=== PATIENT | female | born 1960 | race African-American/Black ===

== ENCOUNTER 2017-08-01 13:25 | Observation (INO) ==
--- NOTE | 2017-08-01 13:36 | Emergency Department Note ---
Disposition Clinical Impression: Transient cerebral ischemia Qualifiers: Transient cerebral ischemia type: unspecified Qualified Code(s): G45.9 - Transient cerebral ischemic attack, unspecified Disposition: Admitted As Inpatient Condition: Good Time of Disposition: 15:37 Neuro HPI - General Chief Complaint: ED Neuro Symptoms/Deficit Stated Complaint: stroke like symptoms Time Seen by Provider: 08/01/17 13:28 Source: patient Mode of arrival: ambulatory Limitations: no limitations Nursing Notes Reviewed: Yes Vital Signs Reviewed: Yes - History of Present Illness HPI Narrative: 57-year-old female otherwise healthy presents emergency department for slurred speech. 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 Some friends and coworkers came to evaluate the patient and she was still unable to repeat certain words. Patient presented immediately to the emergency department. She was evaluated immediately on arrival. She was ambulatory here. Symptoms have completely resolved. Patient reports a history of migraines. She denies any other symptoms such as chest pain, shortness of breath, lightheadedness or syncope. She denies any weakness. She does feel like her upper extremities are sore and heavy. Denies history of cardiac ischemic disease or history of TIA/CVA. She reports a significant history of TIA/CVA in her family. She has been stressed recently as her son has recently came up to visit. She denies history of smoking. Onset of Symptoms Date: 08/01/17 Onset of Symptoms Time: 13:30 Symptom Onset Unknown: No Timing confirmed by: other (FRIEND) Location: speech History of same: No Severity: mild Symptoms Improving: Yes Improves with: time Context: sudden onset On Anticoagulants: No Associated symptoms: Reports: headaches. Denies: confusion, chest pain, cough, diaphoresis, nausea/vomiting, vertigo, seizures, shortness of breath, syncope, weakness - Related Data Home Medications: Home Medications Medication Instructions Recorded Confirmed Allopurinol [Zyloprim 100 MG] 100 mg PO DAILY 08/01/17 08/01/17 Aspirin [Lo-Dose Aspirin EC] 81 mg PO DAILY 08/01/17 08/01/17 Minocycline HCl [Minocin] 100 mg PO DAILY 08/01/17 08/01/17 Tazarotene [Tazorac] 1 appl TP HS 08/01/17 08/01/17 Triamterene/HCTZ 37.5/25mg 1 tab PO DAILY 08/01/17 08/01/17 [Dyazide] Allergies/Adverse Reactions: Allergies Allergy/AdvReac Type Severity Reaction Status Date / Time Penicillins Allergy Anaphylaxis Verified 04/09/17 09:38 codeine AdvReac Rash Verified 04/09/17 09:38 All systems ED: reviewed and negative except as stated. Review of Systems: As Per HPI Constitutional: Denies: fever, chills, weakness Eyes: Denies: vision change ENT ED: Denies: congestion Cardiovascular: Denies: chest pain, syncope Respiratory: Denies: cough, dyspnea Gastrointestinal: Denies: abdominal pain Musculoskeletal: Denies: back pain, arthralgia Neurological: Reports: headache. Denies: abnormal gait, vertigo Psychiatric: Denies: anxiety, depression Past Medical History - Past Medical History Attestation: Yes The following information was validated with the patient. 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 Absent: nystagmus - ENT ENT exam: normal exam, normal oropharynx, mucous membranes moist - Neck Neck exam: Present: normal inspection, full ROM, trachea midline - Chest Chest inspection: Present: normal inspection, symmetric chest wall rise - Respiratory Respiratory exam: Present: normal lung sounds bilaterally. Absent: respiratory distress, wheezes - Cardiovascular Cardiovascular exam: Present: regular rate, normal rhythm, normal heart sounds - Abdominal Exam Abdominal exam: Present: soft, Non-Tender, normal bowel sounds. Absent: tenderness, distention, guarding, rebound, rigidity - Extremities Exam Extremities exam: Present: normal inspection, full ROM, normal capillary refill. Absent: tenderness, pedal edema - Neurological Exam Neurological exam: Present: alert, oriented X3, CN II-XII intact, normal gait - Expanded Neurological Exam Patient oriented to: Present: person, place, time Speech: Present: fluid speech Cranial nerves: EOM function (II, III, IV, ): Normal, facial sensation (V): Normal, facial palsy (VII): Normal, gag reflex (IX): Normal, spinal accessory function (XI): Normal, tongue deviation (XII): Normal Cerebellar function: finger to nose: Normal, heel to welch: Normal Cerebellar function: normal gait Motor strength - LUE: 5/5 Motor strength - RUE: 5/5 Motor strength - LLE: 5/5 Motor strength - RLE: 5/5 Upper motor neuron exam: leila neglect: Absent bilaterally, pronator drift: Absent bilaterally Sensory exam upper extremity: light touch: Normal Sensory exam lower extremity: light touch: Normal Coma Scale Eye Opening: Spontaneous Coma Scale Motor Response: Obeys Commands Coma Scale Verbal Response: Oriented Coma Scale Total: 15 - Psychiatric Psychiatric exam: Present: normal affect, normal mood - Skin Skin exam: Present: warm, dry, intact, normal color. Absent: rash, cyanosis, diaphoresis Course Course Narrative: Patient presents with slurred speech immediately prior to arrival. Her symptoms have spontaneously resolved. Her initial NIH score of 0. Given the resolution of the symptoms patient is not a TPA candidate at this time. Neurologic exam is otherwise unremarkable without any focal neural deficits. Stroke workup initiated. - Reevaluation(s) Reevaluation #1: Review for lab shows a leukocytosis without left shift. Her potassium is slightly low at 3.4. Hemoglobin is 15.5. Labs otherwise unremarkable. She has been evaluated by neurology here in the emergency department and admission was recommended with MRI scan. Patient is pending MRI scan of the brain and will be transferred to the floor. Continues to speak in clear full sentences with family at bedside. No focal neuro deficits. Time: 15:03 Reevaluation #2: Of note CT head was cancelled, pending MRI scan which will be for another 1 hour. Time: 15:37 - Consultations Consultation #1: Patient was seen and evaluated by neurologist Dr. Us here in the emergency department. He is aware that the patient has history of migraines and this could be manifestation of complex migraines but given symptoms would recommend admission including a MRI of the brain here in the emergency department. No other recommendations at this time. Time: 14:22 Consultation #2: Spoke with on-call hospitalist dirk Suh to admit for TIA/CVA. No further orders at this time Time: 15:26 Vital Signs Temperature 98.4 F 08/01/17 13:26 Pulse Rate 76 08/01/17 13:26 Respiratory Rate 20 08/01/17 13:26 Blood Pressure 169/109 08/01/17 13:26 O2 Sat by Pulse Oximetry 99 08/01/17 13:26 Temperature 97.9 F 08/01/17 21:00 Pulse Rate 70 08/01/17 21:00 Respiratory Rate 16 08/01/17 21:00 Blood Pressure 116/85 08/01/17 21:00 O2 Sat by Pulse Oximetry 96 08/01/17 21:00 Oxygen Delivery Oxygen Delivery Room Air Neuro Symptoms/Deficit - MDM Narrative Medical decision making narrative: Patient was discussed with my attending physician who agrees with ED management and final disposition. They independently evaluated the patient. Please refer to their attestation to this encounter for additional information. This note was generated by [employer] voice recognition software and as a result grammatical or spelling errors may occur using this program. - Differential Diagnosis Likely: cerebrovascular accident, transient cerebral ischemia - Medical Records Medical records reviewed: Yes I reviewed the patient's medical records. - Lab Data Lab results reviewed: Yes I reviewed the patient's lab results. Result diagrams: 08/01/17 13:40 08/01/17 13:40 Lab Results 08/01/17 08/01/17 08/01/17 Range/Units 13:28 13:40 13:40 WBC 12.5 H (4.3-11.1) K/mcL RBC 5.67 H (3.82-4.97) M/mcL Hgb 15.5 H (11.5-15.4) g/dL Hct 48.0 H (35.3-44.9) % MCV 84.7 (83.0-100.0) fL MCH 27.3 L (28.0-33.3) pg MCHC 32.3 (31.6-35.5) g/dL RDW 15.2 H (11.5-14.5) % Plt Count 354 (140-400) K/mcL MPV 10.6 (9.4-12.4) fL Immature Gran % 0.3 (0-4) % Seg Neutrophils % 61.2 % Lymphocytes % 27.6 % Monocytes % 8.6 % Eosinophils % 1.5 % Basophils % 0.8 % Neutrophils # 7.6 (1.6-8.9) K/mcL Lymphocytes # 3.4 (0.6-4.6) K/mcL Monocytes # 1.1 (0.0-1.3) K/mcL Eosinophils # 0.2 (0.0-0.6) K/mcL Basophils # 0.1 (0.0-0.2) K/mcL PT 11.1 (9.4-12.1) Seconds INR 1.0 APTT 35.0 (26.0-36.0) Seconds Sodium (136-145) mEq/L Potassium (3.5-5.1) mEq/L Chloride (98-107) mEq/L Carbon Dioxide (23-29) mEq/L BUN (6-20) mg/dL Creatinine (0.60-1.20) mg/dL Est GFR ( Amer) (> 60) Est GFR (Non-Af Amer) (> 60) BUN/Creatinine Ratio (6-26) Glucose (70-105) mg/dL POC Glucose 89 (70-99) mg/dL Calculated Osmolality (280-300) Calcium (8.6-10.3) mg/dL Troponin I (< 0.04) ng/mL 08/01/17 Range/Units 13:40 WBC (4.3-11.1) K/mcL RBC (3.82-4.97) M/mcL Hgb (11.5-15.4) g/dL Hct (35.3-44.9) % MCV (83.0-100.0) fL MCH (28.0-33.3) pg MCHC (31.6-35.5) g/dL RDW (11.5-14.5) % Plt Count (140-400) K/mcL MPV (9.4-12.4) fL Immature Gran % (0-4) % Seg Neutrophils % % Lymphocytes % % Monocytes % % Eosinophils % % Basophils % % Neutrophils # (1.6-8.9) K/mcL Lymphocytes # (0.6-4.6) K/mcL Monocytes # (0.0-1.3) K/mcL Eosinophils # (0.0-0.6) K/mcL Basophils # (0.0-0.2) K/mcL PT (9.4-12.1) Seconds INR APTT (26.0-36.0) Seconds Sodium 138 (136-145) mEq/L Potassium 3.4 L (3.5-5.1) mEq/L Chloride 100 (98-107) mEq/L Carbon Dioxide 27 (23-29) mEq/L BUN 21 H (6-20) mg/dL Creatinine 1.03 (0.60-1.20) mg/dL Est GFR ( Amer) > 60 (> 60) Est GFR (Non-Af Amer) 55 L (> 60) BUN/Creatinine Ratio 20 (6-26) Glucose 96 (70-105) mg/dL POC Glucose (70-99) mg/dL Calculated Osmolality 289 (280-300) Calcium 10.1 (8.6-10.3) mg/dL Troponin I < 0.03 (< 0.04) ng/mL - Radiology Data Radiology results reviewed: Yes I reviewed the patient's radiology results. Chest X-Ray 08/01/17 13:35 IMPRESSION: 1. No acute radiographic finding in the chest. D/ / Layton Lu MD / Layton Lu MD Interpreting Provider: Layton Lu MD Stroke Scale - Level of Consciousness LOC: Alert - LOC Questions LOC Questions: Answers both correctly - LOC Commands LOC Commands: Performs both correctly - Best Gaze Best Gaze: Normal - Visual Visual: No visual loss - Facial Palsy Facial Palsy: Normal - Motor Arms Motor Arm-Left: No drift for 10 seconds Motor Arm-Right: No drift for 10 seconds - Motor Legs Motor Leg-Left: No drift for 5 seconds Motor Leg-Right: No drift for 5 seconds - Limb Ataxia Limb Ataxia: Absent of affected limb too weak to perform exam - Sensory Sensory: Normal - Best Language Best Language: No aphasia - Dysarthria Dysarthria: Normal - Extinction and Inattention Extinction and Inattention: Normal - NIHSS Total Score NIHSS Total Score: 0 TPA Checklist - Source Information Source: Family - Eligibilty for IV tPA 1. LKW equal to or less than 4.5 hours be before treatment: Yes 2. Clinical diagnosis of ischemic stroke causing deficit: Yes 3. Age 18 years or older: Yes - LKW: 3-4.5 hrs Add. Warnings/Precautions Patient/family understanding: The patient/family members have been counseled and understood the risk, benefit , and alternatives of treatment.
[2017-08-01 13:59] LABS: Basophils # 0.1 K/mcL (0.0-0.2); Basophils % 0.8 %; Eosinophils # 0.2 K/mcL (0.0-0.6); Eosinophils % 1.5 %; Hemoglobin 15.5 g/dL (11.5-15.4); Immature Granulocytes % 0.3 % (0-4); Lymphocytes # 3.4 K/mcL (0.6-4.6); Lymphocytes % 27.6 %; Mean Corpuscular HGB Conc 32.3 g/dL (31.6-35.5); Mean Corpuscular Hemoglobin 27.3 pg (28.0-33.3); Mean Corpuscular Volume 84.7 fL (83.0-100.0); Mean Platelet Volume 10.6 fL (9.4-12.4); Monocytes # 1.1 K/mcL (0.0-1.3); Monocytes % 8.6 %; Neutrophils # 7.6 K/mcL (1.6-8.9); Platelet Count 354 K/mcL (140-400); Red Blood Count 5.67 M/mcL (3.82-4.97); Red Cell Distribution Width 15.2 % (11.5-14.5); Segmented Neutrophils % 61.2 %
[2017-08-01 14:03] LABS: Prothrombin Time 11.1 Seconds (9.4-12.1)
--- NOTE | 2017-08-01 14:13 | Emergency Department Note ---
Disposition Clinical Impression: Transient cerebral ischemia Qualifiers: Transient cerebral ischemia type: other Qualified Code(s): G45.8 - Other transient cerebral ischemic attacks and related syndromes Disposition: Still a Patient Forms: ED Satisfaction Letter General Adult HPI - General Chief complaint: ED Neuro Symptoms/Deficit Stated complaint: stroke like symptoms Time Seen by Provider: 08/01/17 13:28 - History of Present Illness Pain Scale: 0 - Related Data Home Medications Medication Instructions Recorded Confirmed Dyazide 03/12/16 Blood Pressure Pills 04/21/17 Hydrochloric Acid 04/21/17 Motrin 04/21/17 Tylenol 04/21/17 Previous Rx's Medication Instructions Recorded Promethazine [Phenergan] 25 mg PO Q6HR PRN #16 tablet 03/12/16 Azithromycin [Zithromax] 0 tab PO DAILY #6 tablet 04/21/17 Benzonatate [Tessalon] 200 mg PO TID #20 capsule 04/21/17 Allergies Allergy/AdvReac Type Severity Reaction Status Date / Time Penicillins Allergy Anaphylaxis Verified 04/09/17 09:38 codeine AdvReac Rash Verified 04/09/17 09:38 Past Medical History - Past Medical History Medical history: Reports: GI bleed, hypertension, other Psychiatric history: Reports: no psych history 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 I agree with the documented findings, disposition and treatment plan as described except to the extent set forth below. ED attending note: Patient seen with emergency medicine resident Dr. Da Trevizo. We independently evaluated the patient. We independently had face-to- face contact with the patient. Please see a copy of his note for details of the history and physical, evaluation, management and disposition of this emergency Department patient. Briefly: 57-year-old female presents ambulatory with family and friends with transient slurred speech. Upon arrival and evaluation NIH was 0 shows neurologically nonfocal. There is a strong family history of premature stroke. Dr. Us neurologist came down and evaluated patient. We discussed case and we agreed that an MRA along with admission and observation would be reasonable plan. Testing is in process. Admission disposition pending. Provided 30 minutes critical care service for this patient. Presumptive clinical diagnosis is TIA. Time: 14:10 Vital Signs Temperature 98.4 F 08/01/17 13:26 Pulse Rate 76 08/01/17 13:26 Respiratory Rate 20 08/01/17 13:26 Blood Pressure 169/109 08/01/17 13:26 O2 Sat by Pulse Oximetry 99 08/01/17 13:26 Temperature 98.4 F 08/01/17 13:26 Pulse Rate 68 08/01/17 13:49 Respiratory Rate 16 08/01/17 13:49 Blood Pressure 151/108 08/01/17 13:49 O2 Sat by Pulse Oximetry 99 08/01/17 13:49 Oxygen Delivery Oxygen Delivery Room Air Medical Decision Making - Lab Data Result diagrams: 08/01/17 13:40 Lab Results 08/01/17 08/01/17 Range/Units 13:28 13:40 WBC 12.5 H (4.3-11.1) K/mcL RBC 5.67 H (3.82-4.97) M/mcL Hgb 15.5 H (11.5-15.4) g/dL Hct 48.0 H (35.3-44.9) % MCV 84.7 (83.0-100.0) fL MCH 27.3 L (28.0-33.3) pg MCHC 32.3 (31.6-35.5) g/dL RDW 15.2 H (11.5-14.5) % Plt Count 354 (140-400) K/mcL MPV 10.6 (9.4-12.4) fL Immature Gran % 0.3 (0-4) % Seg Neutrophils % 61.2 % Lymphocytes % 27.6 % Monocytes % 8.6 % Eosinophils % 1.5 % Basophils % 0.8 % Neutrophils # 7.6 (1.6-8.9) K/mcL Lymphocytes # 3.4 (0.6-4.6) K/mcL Monocytes # 1.1 (0.0-1.3) K/mcL Eosinophils # 0.2 (0.0-0.6) K/mcL Basophils # 0.1 (0.0-0.2) K/mcL POC Glucose 89 (70-99) mg/dL
[2017-08-01 14:15] LABS: BUN/Creatinine Ratio 20 (6-26); Blood Urea Nitrogen 21 mg/dL (6-20); Calcium 10.1 mg/dL (8.6-10.3); Carbon Dioxide 27 mEq/L (23-29); Chloride 100 mEq/L (98-107); Glucose 96 mg/dL (70-105); Osmolality,Calculated 289 (280-300); Potassium 3.4 mEq/L (3.5-5.1); Sodium 138 mEq/L (136-145); eGFR For African Americans > 60 (> 60); eGFR For Non-African Americans 55 (> 60)
[2017-08-01 14:18] LABS: Troponin I < 0.03 ng/mL (< 0.04)
[2017-08-01] MEDS ORDERED: *HR* Midazolam HCl 2 MG/2 ML VIAL IVP ONE (14:59)
[2017-08-01] MEDS ORDERED: Naloxone 0.4 MG/ML INJ IVP PRN (15:31)
[2017-08-01] MEDS ORDERED: *HR* HYDROcodone/Acet 5/325 mg TABLET PO PRN (15:33)
[2017-08-01] MEDS ORDERED: Acetaminophen 325 MG TABLET PO PRN (15:33)
[2017-08-01] MEDS ORDERED: Aspirin 81 MG TAB.CHEW PO ONE (15:35)
[2017-08-01] MEDS ORDERED: *HR* LORazepam 1 MG TABLET PO ONE (15:42)
[2017-08-01] MEDS ORDERED: *HR* LORazepam 2 MG/ML VIAL IVP ONE (15:48)
[2017-08-01] MEDS ORDERED: *HR* LORazepam 0.5 MG TABLET PO PRN (16:26)
--- NOTE | 2017-08-01 16:31 | Internal Med History&Physical ---
Date of Encounter: 08/01/17 Time of Encounter: 15:50 Internal Medicine - H&P: HPI Chief complaint: Slurred speech Admitted From: Emergency Dept Plans for Post Hospital Care: Home History of present illness: Ms. Johnson is a 57-year-old female with known PMH of HTN, and gout who presented emergency room with slurred speech. 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 Some friends and coworkers came to evaluate the patient and she was still unable to repeat certain words. Patient presented immediately to the emergency department. Her symptoms have completely resolved when she presented emergency room. Patient reports a history of migraines. She denies any other symptoms such as chest pain, shortness of breath, lightheadedness or syncope. She denies any weakness. She does feel like her upper extremities are sore, numb and heavy. Denies history of cardiac ischemic disease or history of TIA/CVA. She reports a significant history of TIA/CVA in her family. She denies history of smoking. Past Med Surg Social Fam HX - Past Medical History Medical history: GI bleed, hypertension, other Psychiatric history: no psych history - Past Surgical History Additional surgical history: bilat knee replacements - Social History Smoking Status: Never smoker Smokeless Tobacco Status: No Alcohol use: none Drug use: none Internal Medicine - H&P: Meds Allopurinol [Zyloprim 100 MG] 100 mg PO DAILY 08/01/17 [History] Aspirin [Lo-Dose Aspirin EC] 81 mg PO DAILY 08/01/17 [History] Minocycline HCl [Minocin] 100 mg PO DAILY 08/01/17 [History] Tazarotene [Tazorac] 1 appl TP HS 08/01/17 [History] Triamterene/HCTZ 37.5/25mg [Dyazide] 1 tab PO DAILY 08/01/17 [History] 3 Allergy/AdvReac Type Severity Reaction Status Date / Time Penicillins Allergy Anaphylaxis Verified 04/09/17 09:38 codeine AdvReac Rash Verified 04/09/17 09:38 All Systems PM: A 10-system review of systems was performed and is negative for pertinent findings except as documented above in the HPI. Review of systems: All the systems are reviewed everything is benign except the systems and symptoms I mentioned in the history of present illness - Constitutional Vitals: Temp Pulse Resp BP Pulse Ox 98.4 F 75 18 178/95 97 08/01/17 13:26 08/01/17 15:07 08/01/17 15:53 08/01/17 15:53 08/01/17 15:07 General appearance: Present: A&O X 3, no acute distress, answers questions appropriately - Head Head exam: Present: atraumatic, normal inspection - Neck Neck exam general surgery: Present: supple - Respiratory Respiratory exam: Present: decreased breath sounds. Absent: rales, respiratory distress, rhonchi, wheezes - Cardiovascular Cardiovascular exam: Present: RRR, +S1, +S2. Absent: tachycardia - GI/Abdominal GI/Abdominal exam: Present: normal bowel sounds, soft. Absent: guarding, rebound, rigid, tenderness - Extremities Exam Extremities exam: Absent: calf tenderness, pedal edema, tenderness - Back Exam Back exam: Absent: CVA tenderness (L), CVA tenderness (R) - Neurological Exam Neurological exam: Present: alert, CN II-XII intact, oriented X3, reflexes normal, no focal deficits, strengths equal and symetr throughout. 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 reviewed her CT of head - no acute ICH Pt was evaluated by Neuro - recommend MRI of Head now Will get 2 D Echo Will get Carotid doppler b/l Will check FLP in AM Neuro checks Q4hr Qualifiers: Transient cerebral ischemia type: unspecified Qualified Code(s): G45.9 - Transient cerebral ischemic attack, unspecified (2) Slurred speech Current Visit: Yes Status: Acute (3) HTN (hypertension) Current Visit: Yes Status: Acute Assessment and plan: Resumed home medications Qualifiers: Hypertension type: essential hypertension Qualified Code(s): I10 - Essential (primary) hypertension (4) Gout Current Visit: Yes Status: Acute Assessment and plan: Resumed home medications Qualifiers: Gout site: unspecified site Chronicity: chronic Presence of tophus: without tophus Qualified Code(s): M1A.00X0 - Idiopathic chronic gout, unspecified site, without tophus (tophi) (5) Anxiety Current Visit: Yes Status: Acute Assessment and plan: She does have anxiety too I will give her Ativan 1 mg IV x one dose before MRI also placed on Ativan oral as needed - Time Spent With Patient Total time spent is greater than 50% in coordination of care (as documented) at patient's floor/unit and/or counseling patient:
--- NOTE | 2017-08-01 17:19 | Neurology - Consult Note ---
Date of Encounter: 08/01/17 Time of Encounter: 17:14 Assessment and Plan (1) Intractable episodic headache Current Visit: Yes Status: Acute It is my suspicion that we are likely dealing with migraine with aura/ complicated migraine. She has experienced migraine equivalents in the past. Generally she does not experience a headache however. However she did experience what seems to be consistent with a migraine aura with associated headache and speech arrest. Migraine headaches of course can be associated with focal symptoms. I am also concerned that she has a family history significant for several first-degree relatives who have had accelerated vascular disease at a young age.I would therefore like to obtain a CTA of the head and neck. We will start her on aspirin 81 mg daily. At this point I am not convinced that we are dealing with transient ischemia and I do not feel that the NIH checks are necessary. Further recommendations will be made pending the CTA scans. Qualifiers: Headache type: unspecified Qualified Code(s): R51 - Headache History of Present Illness HPI: The chart was reviewed, the patient was seen and examined. Ms. Johnson is a 57 year old female who is seen for neurologic consultation due to recent onset of headache as well as speech difficulty. She informs me that about the middle of last week she began experiencing transient visual changes that seem to be consistent with a scintillating scotoma. She describes colorful flashes of light that lasted for about 20 minutes or so. She experienced several of these episodes however did not experience a headache until today. She states that while at work earlier today she experienced the migraine type visual aura, along with a fairly intense headache, and speech difficulty. She states that she will she wanted to say however the words would not come out properly. Her blood pressure was elevated in the ED. Stat MRI scan of the brain revealed mild ischemic changes however no evidence of acute infarct. His my suspicion that this was a complicated migraine and not a TIA, primarily because of the associated visual aura. The headache is since resolved. She is somewhat exhausted. However she denies any numbness tingling or weakness of the face arms or legs. Denies any balance difficulty. Her speech has returned to normal. Past Med Surg Social Fam HX - Past Medical History Medical history: GI bleed, hypertension, other Psychiatric history: no psych history - Past Surgical History Additional surgical history: bilat knee replacements - Social History Smoking Status: Never smoker Smokeless Tobacco Status: No Alcohol use: none Drug use: none Medications and Allergies Allopurinol [Zyloprim 100 MG] 100 mg PO DAILY 08/01/17 [History] Aspirin [Lo-Dose Aspirin EC] 81 mg PO DAILY 08/01/17 [History] Minocycline HCl [Minocin] 100 mg PO DAILY 08/01/17 [History] Tazarotene [Tazorac] 1 appl TP HS 08/01/17 [History] Triamterene/HCTZ 37.5/25mg [Dyazide] 1 tab PO DAILY 08/01/17 [History] 3 Allergy/AdvReac Type Severity Reaction Status Date / Time Penicillins Allergy Anaphylaxis Verified 04/09/17 09:38 codeine AdvReac Rash Verified 04/09/17 09:38 All Systems: The remainder of the systems were reviewed and are negative Review of Systems: The balance of the systems review is negative. Physical Examination - Vital Signs Vital Signs: Initial Vital Signs Temp Pulse Resp BP Pulse Ox 98.4 F 76 20 169/109 99 08/01/17 13:26 08/01/17 13:26 08/01/17 13:26 08/01/17 13:26 08/01/17 13:26 - Neurologic Detailed motor examination: full strength in all major muscle groups Motor examination - right side: 5/5: deltoids, biceps, triceps, wrist flexion, wrist extension, process control engineer, hip flexors, tibialis Anterior, quadriceps, toe extension (EHL), plantarflexion Motor examination - left side: 5/5: deltoids, biceps, triceps, wrist flexion, wrist extension, hip flexors, process control engineer, quadriceps, tibialis Anterior, toe extension (EHL), plantarflexion Reflexes: Biceps: 2+ (Symmetrically), Triceps: 2+ ("), Brachioradialis: 2+ ("), Patella: 2+ ("), Achilles: 2+ (") Mental Status Examination: awake, alert, oriented to person, oriented to place, oriented to time, follows commands appropriately, answers questions appropriately, no agnosia, no aphasia, no aproxia Cranial nerve examination: PERRL, EOMI, visual encarnacion intact, corneal reflexes brisk symmetrically, sensory to face intact, mastication intact, no facial asymmetry is present, no dysarthria, hearing is intact symmetrically, soft palate elevates bilaterally upon phonation, gag reflex intact, flexes SCM and trapezius muscles symmetrically with full power, tongue protrudes midline, no atrophy or facial fasiculations present Cerebellar examination: no dysmetria, performs finger to nose and heel to welch symmetrically without ataxia, no gait ataxia, no truncal ataxia, no difficulty with rapid alternating movements Results - Laboratory Findings CBC and BMP: 08/01/17 13:40 08/01/17 13:40 Abnormal lab findings: Abnormal lab results WBC 12.5 K/mcL (4.3-11.1) H 08/01/17 13:40 RBC 5.67 M/mcL (3.82-4.97) H 08/01/17 13:40 Hgb 15.5 g/dL (11.5-15.4) H 08/01/17 13:40 Hct 48.0 % (35.3-44.9) H 08/01/17 13:40 MCH 27.3 pg (28.0-33.3) L 08/01/17 13:40 RDW 15.2 % (11.5-14.5) H 08/01/17 13:40 Potassium 3.4 mEq/L (3.5-5.1) L 08/01/17 13:40 BUN 21 mg/dL (6-20) H 08/01/17 13:40 Est GFR (Non-Af Amer) 55 (> 60) L 08/01/17 13:40 Consult Discharge Plan - Plan Referrals: Bisi Larios MD [Primary Care Provider] -
[2017-08-01] MEDS ORDERED: Isovue-370 500 ML INFUS..BTL IV ONE (17:25)
[2017-08-01] MEDS ORDERED: TAZAROTENE TP SCH (21:00)
[2017-08-02 01:16] LABS: Basophils # 0.1 K/mcL (0.0-0.2); Basophils % 0.7 %; Eosinophils # 0.2 K/mcL (0.0-0.6); Eosinophils % 1.9 %; Hematocrit 41.7 % (35.3-44.9); Immature Granulocytes % 0.3 % (0-4); Lymphocytes # 2.3 K/mcL (0.6-4.6); Lymphocytes % 21.7 %; Mean Corpuscular HGB Conc 32.6 g/dL (31.6-35.5); Mean Corpuscular Hemoglobin 27.8 pg (28.0-33.3); Mean Corpuscular Volume 85.3 fL (83.0-100.0); Mean Platelet Volume 10.8 fL (9.4-12.4); Monocytes % 9.6 %; Neutrophils # 6.9 K/mcL (1.6-8.9); Platelet Count 290 K/mcL (140-400); Red Blood Count 4.89 M/mcL (3.82-4.97); Red Cell Distribution Width 15.2 % (11.5-14.5); Segmented Neutrophils % 65.8 %
[2017-08-02 01:17] LABS: Hemoglobin 13.6 g/dL (11.5-15.4)
[2017-08-02 01:30] LABS: BUN/Creatinine Ratio 29 (6-26); Blood Urea Nitrogen 24 mg/dL (6-20); Calcium 9.3 mg/dL (8.6-10.3); Carbon Dioxide 25 mEq/L (23-29); Chloride 104 mEq/L (98-107); Chol/HDL Ratio 3.7 (0-4.9); Cholesterol 228 mg/dL (< 200); Glucose 111 mg/dL (70-105); HDL Cholesterol 62 mg/dL (40-59); LDL Cholesterol,Calculated 146 mg/dL (0-99); Osmolality,Calculated 291 (280-300); Potassium 3.3 mEq/L (3.5-5.1); Sodium 138 mEq/L (136-145); Triglycerides 98 mg/dL (< 150); eGFR For African Americans > 60 (> 60); eGFR For Non-African Americans > 60 (> 60)
[2017-08-02] MEDS ORDERED: Aspirin Enteric Coated 81 MG Tablet PO SCH (09:00)
--- NOTE | 2017-08-02 09:22 | Internal Med Progress Note ---
<James James - Last Filed: 08/02/17 11:44> Date of Encounter: 08/02/17 Time of Encounter: 09:20 - Assessment and plan (1) Transient cerebral ischemia Status: Acute Assessment and plan: Patient had slurred speech that resolved spontaneously. Neurology consulted and feel the slurred speech may be more related to complicated migraines rather than ischemia. Serial troponins negative. CT Head with no acute findings MRI Brain no acute findings CTA Head with no acute findings or in anterior/posterior circulation without focal stenosis. Neurology to followup with patient as outpatient. -Pending Echo -Pending Carotid doppler Qualifiers: Transient cerebral ischemia type: unspecified Qualified Code(s): G45.9 - Transient cerebral ischemic attack, unspecified (2) Slurred speech Status: Resolved Assessment and plan: per plan in assessment above. (3) Complicated migraine Status: Acute Assessment and plan: Neurology note reviewed. Symptoms of sllurred speech may have been related to complicated migraine rather than ischemic event. Continue to manage bp and complete Echo and carotid doppler. Followup with Neurology as outpatient. -Consider prophlaxtic therapy such as propranolol with caution as hr is 74bpm. (4) HTN (hypertension) Status: Acute Assessment and plan: Resumed home medications Bp elevated, will continue to monitor and consider adding amlodipine 5mg if continues elevated through this afternoon. Qualifiers: Hypertension type: essential hypertension Qualified Code(s): I10 - Essential (primary) hypertension (5) Hypercholesterolemia Status: Acute Assessment and plan: Cholesterol 228, TG 98, LDL 146, HDL 62 -Start Lipitor (6) Gout Status: Chronic Assessment and plan: Resumed home medications Qualifiers: Gout site: unspecified site Gout etiology: unspecified cause Chronicity: chronic Presence of tophus: without tophus Qualified Code(s): M1A.9XX0 - Chronic gout, unspecified, without tophus (tophi) (7) Anxiety Status: Acute Assessment and plan: Has a history of anxiety. Continue with home medications for anxiety. - Time Spent With Patient Total time spent is greater than 50% in coordination of care (as documented) at patient's floor/unit and/or counseling patient: - Subjective Interval history: Ms. Johnson reports doing well overnight, no symptoms. Patient reports her difficulty/slurred speech resolved by the time she arrived to the ED yesterday. Reports her bp has been higher than normal, but upon reviewing the patient's meds with her, she says she received the correct medication for her bp. Patient currently denies fevers, chills, sweats, headache, nausea, vomiting, chest pain, shortness of breath, adominal pain, changes in bowels or bladder, weakness, or loss of sensation. - Constitutional Vitals: Temp Pulse Resp BP Pulse Ox 97.9 F 74 15 142/98 97 08/02/17 06:52 08/02/17 06:52 08/02/17 06:52 08/02/17 06:52 08/02/17 06:52 General appearance: Present: A&O X 3, pleasant, no acute distress, obese, answers questions appropriately - Head Head exam: Present: atraumatic, normal inspection, normocephalic - Eye Eye exam: Present: EOMI, normal appearance, PERRL - ENT ENT exam: Present: mucous membranes moist, normal exam - Neck Neck exam general surgery: Present: full ROM, normal inspection, supple, trachea midline. Absent: lymphadenopathy - Respiratory Respiratory exam: Present: CTAB. Absent: rales, respiratory distress, rhonchi, wheezes - Cardiovascular Cardiovascular exam: Present: RRR, +S1, +S2 - GI/Abdominal GI/Abdominal exam: Present: normal bowel sounds, soft. Absent: distended, tenderness - Extremities Exam Extremities exam: Present: full ROM, normal inspection, pedal edema (1+ bilateral lower ext nonpitting edema), warm, radial pulses palpable and symmetrical. Absent: tenderness - Neurological Exam Neurological exam: Present: alert, oriented X3, no focal deficits, strengths equal and symetr throughout. Absent: facial droop, speech deficit - Skin Skin exam: Present: dry, intact, normal color, warm. Absent: rash Internal Medicine: Result - Labs CBC & Chem 7: 08/02/17 00:45 08/02/17 00:45 Labs: Short CBC 08/02/17 Range/Units 00:45 WBC 10.5 (4.3-11.1) K/mcL Hgb 13.6 D (11.5-15.4) g/dL Hct 41.7 (35.3-44.9) % Plt Count 290 (140-400) K/mcL Neutrophils # 6.9 (1.6-8.9) K/mcL BMP 08/02/17 00:45 Sodium 138 Potassium 3.3 L Chloride 104 Carbon Dioxide 25 BUN 24 H Creatinine 0.82 Glucose 111 H Calcium 9.3 Cardiac Enzymes 08/01/17 Range/Units 19:40 Troponin I < 0.03 (< 0.04) ng/mL - ABG Interpretation ABG results: PT/INR, D-dimer PT 11.1 Seconds (9.4-12.1) 08/01/17 13:40 - Impressions Impressions Head CTA 08/01/17 17:25 IMPRESSION: 1. No acute intracranial abnormality. 2. Normal CTA of the head. D/ / Da Miranda / Da Miranda Interpreting Provider: Da Miranda Consult Discharge Plan - Plan Instructions: Chronic Hypertension (DC), Anxiety (DC) Referrals: Bisi Larios MD [Primary Care Provider] - 08/07/17 8:00 am Ortiz Us DO [Partnered Physician] - 08/22/17 9:15 am Prescriptions: amLODIPine [Norvasc] 5 mg PO DAILY #30 tablet Atorvastatin [Lipitor] 40 mg PO HS #30 tablet <Teja Ferguson - Last Filed: 08/02/17 18:58> Date of Encounter: 08/02/17 - Assessment and plan (1) Complicated migraine Status: Acute (2) Transient cerebral ischemia Status: Ruled-out Qualifiers: Transient cerebral ischemia type: unspecified Qualified Code(s): G45.9 - Transient cerebral ischemic attack, unspecified (3) Slurred speech Status: Resolved (4) HTN (hypertension) Status: Chronic Qualifiers: Hypertension type: essential hypertension Qualified Code(s): I10 - Essential (primary) hypertension (5) Gout Status: Chronic Qualifiers: Gout site: multiple sites Gout etiology: other secondary cause Chronicity : chronic Presence of tophus: without tophus Qualified Code(s): M1A.49X0 - Other secondary chronic gout, multiple sites, without tophus (tophi) (6) Anxiety Status: Chronic (7) Hypercholesterolemia Status: Chronic - Time Spent With Patient Total time spent is greater than 50% in coordination of care (as documented) at patient's floor/unit and/or counseling patient: - Constitutional Vitals: Temp Pulse Resp BP Pulse Ox 97.9 F 88 15 142/98 96 08/02/17 15:11 08/02/17 15:11 08/02/17 15:11 08/02/17 15:11 08/02/17 15:11 Internal Medicine: Result - Labs CBC & Chem 7: 08/02/17 00:45 08/02/17 00:45 Labs: Short CBC 08/02/17 Range/Units 00:45 WBC 10.5 (4.3-11.1) K/mcL Hgb 13.6 D (11.5-15.4) g/dL Hct 41.7 (35.3-44.9) % Plt Count 290 (140-400) K/mcL Neutrophils # 6.9 (1.6-8.9) K/mcL BMP 08/02/17 00:45 Sodium 138 Potassium 3.3 L Chloride 104 Carbon Dioxide 25 BUN 24 H Creatinine 0.82 Glucose 111 H Calcium 9.3 Cardiac Enzymes 08/01/17 Range/Units 19:40 Troponin I < 0.03 (< 0.04) ng/mL - ABG Interpretation ABG results: PT/INR, D-dimer PT 11.1 Seconds (9.4-12.1) 08/01/17 13:40 - Impressions Impressions Head CTA 08/01/17 17:25 IMPRESSION: 1. No acute intracranial abnormality. 2. Normal CTA of the head. D/ / Da Miranda / Da Miranda Interpreting Provider: Da Miranda Echocardiogram 08/02/17 15:36 Impressions: LVEF 60-65%. Normal LV chamber size, wall thickness and function. Mild left ventricular diastolic dysfunction. Mid systolic anterior motion of the mitral valve leaflets. No LVOT obstruction. Normal right ventricular structure and function. No evidence of a PFO with agitated saline contrast. No evidence of pulmonary hypertension. Left Ventricular Wall Motion: Rest Echo Findings All wall segments showed normal motion. Findings: Study Quality * Technically adequate exam. ECG Findings * Normal sinus rhythm. Left Ventricle * LVEF 60-65%. * Normal LV chamber size, wall thickness and function. * Mild left ventricular diastolic dysfunction. * Mid systolic anterior motion of the mitral valve leaflets. No LVOT obstruction. Right Ventricle * Normal right ventricular structure and function. Left Atrium * Normal left atrial size. Right Atrium * Normal right atrial size. Interatrial Septum * No evidence of a PFO with agitated saline contrast. Aortic Valve * Aortic valve not well visualized. * No aortic regurgitation. * No aortic stenosis. Mitral Valve * Normal mitral valve structure and function. * No mitral regurgitation. * No mitral stenosis. Tricuspid Valve * Normal tricuspid valve structure and function. * Trace tricuspid regurgitation. * No evidence of pulmonary hypertension. Pulmonic Valve * Pulmonic valve is not well visualized. * No pulmonic regurgitation. Aorta * Normally sized aortic root. Pericardium * The pericardium appears normal. IVC * Normal IVC dimensions and inspiratory collapse. Pulmonary Artery * Normal visualized portions of the main pulmonary artery. - Attending Attestation Please see discharge summary of this date.
--- NOTE | 2017-08-02 09:52 | Neurology Progress Note ---
Date of Encounter: 08/02/17 Time of Encounter: 09:50 Assessment and Plan (1) Intractable episodic headache Current Visit: Yes Status: Acute Qualifiers: Headache type: unspecified Qualified Code(s): R51 - Headache (2) Complicated migraine Current Visit: Yes Status: Acute I am convinced that we are dealing with a complicated migraine. The scintillating scotoma is pathognomonic for this. Also the MRI scan of the brain did not reveal evidence of an acute diffusion deficit, CTA scan of the brain was normal. I am not convinced of transient ischemia here. However we will await the echocardiogram and carotid Doppler studies. I am still concerned about her hypertension. This should be normalized prior to discharge. I will follow-up with her in my office at your discretion. Subjective Interval history: The chart was reviewed, the patient was seen and examined. She had an uneventful night. No further episodes of headache or visual change. Blood pressure remains elevated however, 177/108 this morning. CTA scan of the brain reveals no evidence of intracranial stenosis or aneurysm. Echocardiogram and carotid Doppler studies are yet pending. Objective - Constitutional Vitals: Temp Pulse Resp BP Pulse Ox 97.9 F 74 15 142/98 97 08/02/17 06:52 08/02/17 06:52 08/02/17 06:52 08/02/17 06:52 08/02/17 06:52 - Neurological Exam Motor Examination: Present: full strength in all major muscle groups Motor examination - right side: 5/5: deltoids, biceps, triceps, wrist flexion, wrist extension, primer and powder canning leader, hip flexors, tibialis Anterior, quadriceps, toe extension (EHL), plantarflexion Motor examination - left side: 5/5: deltoids, biceps, triceps, wrist flexion, wrist extension, hip flexors, primer and powder canning leader, quadriceps, tibialis Anterior, toe extension (EHL), plantarflexion Sensation intact: Present: intact Reflex and gait examination: intact Mental Status Examination: Present: awake, alert, oriented to person, oriented to place, oriented to time, follows commands appropriately, answers questions appropriately, no agnosia, no aphasia, no aproxia Cranial nerve examination: Present: PERRL, EOMI, visual encarnacion intact, corneal reflexes brisk symmetrically, sensory to face intact, mastication intact, no facial asymmetry is present, no dysarthria, hearing is intact symmetrically, soft palate elevates bilaterally upon phonation, gag reflex intact, flexes SCM and trapezius muscles symmetrically with full power, tongue protrudes midline, no atrophy or facial fasiculations present Cerebellar examination: Present: no dysmetria, performs finger to nose and heel to welch symmetrically without ataxia, no gait ataxia, no truncal ataxia, no difficulty with rapid alternating movements Results - Laboratory Findings CBC and BMP: 08/02/17 00:45 08/02/17 00:45 Abnormal lab findings: Abnormal lab results MCH 27.8 pg (28.0-33.3) L 08/02/17 00:45 RDW 15.2 % (11.5-14.5) H 08/02/17 00:45 Potassium 3.3 mEq/L (3.5-5.1) L 08/02/17 00:45 BUN 24 mg/dL (6-20) H 08/02/17 00:45 BUN/Creatinine Ratio 29 (6-26) H 08/02/17 00:45 Glucose 111 mg/dL (70-105) H 08/02/17 00:45 Cholesterol 228 mg/dL (< 200) H 08/02/17 00:45 LDL Cholesterol, Calc 146 mg/dL (0-99) H 08/02/17 00:45 HDL Cholesterol 62 mg/dL (40-59) H 08/02/17 00:45 Consult Discharge Plan - Plan Referrals: Bisi Larios MD [Primary Care Provider] -
[2017-08-02 15:12] VITALS: BP 142/98
[2017-08-02] MEDS ORDERED: amLODIPine 5 MG TABLET PO ONE (15:41)
--- NOTE | 2017-08-02 15:48 | Discharge Summary ---
<James James - Last Filed: 08/02/17 15:44> - NOTES TO OUTPATIENT PROVIDER Notes to Outpatient Provider: Ms. Johnson was admitted after having symptom of slurred speech and hypertension. CT Head was negative, MRI Head was negative, Head CTA was negative and anterior/posterior circulation was without focal stenosis. Carotid ultrasound essentially normal bilaterally, Echo revealed EF 60-65%, mid systolic anterior motion of the mitral valve leaflets without LVOT obstruction. Troponins were negative. Cholesterol elevated at 229, LDL 146, and HDL 62; therefore Lipitor started. Neurology evaluated patient and advised that symptoms likely match complicated migraine. Bp was elevated throughout hospital stay, around 142/98 after 6 hours starting her bp med again. Due to this, we have also added amlodipine 5mg to her bp regimen. Patient to follow up with Neurology as outpatient. Date of Encounter: 08/02/17 Time of Encounter: 15:45 - Discharge Diagnosis (1) Transient cerebral ischemia Priority: Primary Status: Suspected Assessment and Plan: Patient had slurred speech that resolved spontaneously. Neurology consulted and feel the slurred speech may be more related to complicated migraines rather than ischemia. Serial troponins negative. CT Head with no acute findings MRI Brain no acute findings CTA Head with no acute findings or in anterior/posterior circulation without focal stenosis. Neurology to followup with patient as outpatient. Echo revealed EF 60-65% and mid systolic anterior motion of the mitral valve leaflets without LVOT obstruction. Carotid duplex were essentially normal bilaterally. Qualifiers: Transient cerebral ischemia type: unspecified Qualified Code(s): G45.9 - Transient cerebral ischemic attack, unspecified (2) Slurred speech Priority: Primary Status: Resolved Assessment and Plan: per plan in assessment above. (3) Complicated migraine Priority: Primary Status: Acute Assessment and Plan: Neurology note reviewed. Symptoms of slurred speech may have been related to complicated migraine rather than ischemic event. Continue to manage bp Followup with Neurology as outpatient. -Consider prophlaxtic therapy such as propranolol with caution as hr is 74bpm. (4) HTN (hypertension) Priority: Secondary Status: Acute Assessment and Plan: Resumed home medications Bp elevated, will continue to monitor and consider adding amlodipine 5mg if continues elevated through this afternoon. Qualifiers: Hypertension type: essential hypertension Qualified Code(s): I10 - Essential (primary) hypertension (5) Gout Priority: Secondary Status: Chronic Assessment and Plan: Resumed home medications Qualifiers: Gout site: unspecified site Gout etiology: unspecified cause Chronicity: chronic Presence of tophus: without tophus Qualified Code(s): M1A.9XX0 - Chronic gout, unspecified, without tophus (tophi) (6) Anxiety Priority: Secondary Status: Acute Assessment and Plan: Has a history of anxiety. Continue with home medications for anxiety. (7) Hypercholesterolemia Priority: Secondary Status: Acute Assessment and Plan: Cholesterol 228, TG 98, LDL 146, HDL 62 -Start Lipitor Hospital course: Ms. Johnson is a 57 year old female with history of htn, gout, hx of gi bleed, and migraines who presented to the ED with complaint of slurred speech. Symptoms resolved by ED presentation. CT Head was negative for acute process. MRI head was normal without acute findings and normal anterior/posteriod circulation without focal stenosis. Troponins were negative. Echo revealed EF 60-65% and mid systolic anterior motion of the mitral valve leaflets without LVOT obstruction. Carotid doppler bilaterally was essentially normal. Lipids cascade with Cholesterol 228, LDL 146, and HDL 62. During hospitalization bp were elevated to 160-180s/100s despite being on home bp medications. Administered one dose of amlodipine 5mg before discharge. Lipitor also started for hypercholesterolenemia. Neurology evaluated patient and advised that the slurred speech may be more related to complicated migraines rather than ischemia. On day of discharge patient feels well, no slurred speech or weakness. Denies fevers, chills, sweats, headaches, changes in vision or hearing, nausea, vomiting, chest pain, shorntess of breath, abdominal pain, changes in bowel or bladder, weakness, or loss of sensation. - Time Spent with Patient Total time spent providing and/or coordinating discharge services: - Discharge Medications Prescriptions: amLODIPine [Norvasc] 5 mg PO DAILY #30 tablet Atorvastatin [Lipitor] 40 mg PO HS #30 tablet Home Medications: Allopurinol [Zyloprim 100 MG] 100 mg PO DAILY 08/01/17 [History] Aspirin [Lo-Dose Aspirin EC] 81 mg PO DAILY 08/01/17 [History] Tazarotene [Tazorac] 1 appl TP HS 08/01/17 [History] Triamterene/HCTZ 37.5/25mg [Dyazide] 1 tab PO DAILY 08/01/17 [History] Atorvastatin [Lipitor] 40 mg PO HS #30 tablet 08/02/17 [Rx] amLODIPine [Norvasc] 5 mg PO DAILY #30 tablet 08/02/17 [Rx] Allergies/Adverse Reactions: 3 Allergy/AdvReac Type Severity Reaction Status Date / Time Penicillins Allergy Anaphylaxis Verified 04/09/17 09:38 codeine AdvReac Rash Verified 04/09/17 09:38 Date of admission: 08/01/17 15:26 Primary care physician: Bisi Larios [facility] Anticipated date of discharge: 08/02/17 - Constitutional Vitals: Temp Pulse Resp BP Pulse Ox 97.9 F 88 15 142/98 96 08/02/17 15:11 08/02/17 15:11 08/02/17 15:11 08/02/17 15:11 08/02/17 15:11 General appearance: Present: A&O X 3, pleasant, no acute distress, obese, answers questions appropriately - Head Head exam: Present: atraumatic, normal inspection, normocephalic - Eye Eye exam: Present: EOMI, normal appearance, PERRL - ENT ENT exam: Present: mucous membranes moist, normal exam - Neck Neck exam general surgery: Present: full ROM, normal inspection, supple, trachea midline - Respiratory Respiratory exam: Present: CTAB. Absent: rales, respiratory distress, rhonchi, wheezes - Cardiovascular Cardiovascular exam: Present: RRR, +S1, +S2 - GI/Abdominal GI/Abdominal exam: Present: normal bowel sounds, soft. Absent: distended, tenderness - Extremities Exam Extremities exam: Present: full ROM, normal inspection, warm, radial pulses palpable and symmetrical. Absent: pedal edema - Neurological Exam Neurological exam: Present: CN II-XII intact, normal gait, no focal deficits, strengths equal and symetr throughout. Absent: facial droop, speech deficit - Skin Skin exam: Present: dry, intact, normal color, warm. Absent: rash - Patient Status Disposition: Home, Self-Care Condition: Good Functional capacity at discharge: independent ambulation Overall status at discharge: patient is progressing back to baseline - Discharge Instructions Instructions: Chronic Hypertension (DC), Anxiety (DC) Follow Up With: Bisi Larios MD [Primary Care Provider] - 08/07/17 8:00 am Ortiz Us DO [Partnered Physician] - 08/22/17 9:15 am - Diet and Activity Activity: increase activity as tolerated Diet: low fat, low cholesterol, low salt diet <Teja Ferguson - Last Filed: 08/02/17 17:49> Date of Encounter: 08/02/17 - Discharge Diagnosis (1) Complicated migraine Status: Acute (2) Transient cerebral ischemia Status: Ruled-out Qualifiers: Transient cerebral ischemia type: unspecified Qualified Code(s): G45.9 - Transient cerebral ischemic attack, unspecified (3) Slurred speech Status: Resolved (4) HTN (hypertension) Status: Chronic Qualifiers: Hypertension type: essential hypertension Qualified Code(s): I10 - Essential (primary) hypertension (5) Gout Status: Chronic Qualifiers: Gout site: multiple sites Gout etiology: other secondary cause Chronicity : chronic Presence of tophus: without tophus Qualified Code(s): M1A.49X0 - Other secondary chronic gout, multiple sites, without tophus (tophi) (6) Anxiety Status: Chronic (7) Hypercholesterolemia Status: Chronic Hospital course: Ms. Johnson is a 57 year old female - Time Spent with Patient Total time spent providing and/or coordinating discharge services: Date of admission: 08/01/17 15:26 Primary care physician: Bisi Larios - Constitutional Vitals: Temp Pulse Resp BP Pulse Ox 97.9 F 88 15 142/98 96 08/02/17 15:11 08/02/17 15:11 08/02/17 15:11 08/02/17 15:11 08/02/17 15:11 - Attending Attestation I examined this patient and my medical decision-making was reviewed with the Resident Physician ashley antunez 08/02/17. I agree with the documented findings, disposition and treatment plan as described except to the extent set forth below. Ms Johnson has been in observation due to concern for TIA. She is felt to have complicated migraine. Her BP was very uncontrolled and has improved with treatment. She is currently afebrile and ready for discharge home. Exam Alert Comfortable mucus membranes dry Not tachy No wheeze Plan D/C today Monitor BP as outpatient. Needs close follow up Follow up with PCP and neuro
== END 2017-08-02 17:42 | disposition home or self-care (01) ==
LOC: EMEROO 13:25 → 2NENU 13:25 → SUATTDRO 15:26 → 2NENU 16:12
PROVIDERS: ADMIT Family Medicine; ATTEND Internal Medicine